=== PATIENT | female | born 1975 | race Caucasian/White ===

== ENCOUNTER 2018-08-21 16:38 | Emergency (ER) | payer SELFPAY ==
--- NOTE | 2018-08-21 17:52 | ED Physician Documentation ---
General Adult - HISTORIAN Historian: patient - HPI Stated Complaint: generalized body aches Chief Complaint: General Adult Additional Information: pt here from [place] while house renovated on meds for conditions below-needs refill meds Onset: other (chronic conditions) Timing: still present, pain lasting, persistent since Severity: moderate - ROS CONST: no problems (except as usual) EYES/ENT: none CVS/RESP: denies: chest pain, shortness of breath, cough GI/: denies: abdominal pain, problems urinating, vomiting, nausea MS/SKIN/LYMPH: back pain NEURO/PSYCH: numbness, anxiety, depression - PAST HX Past History: other (fibromyalgia IBS neuropathy gerd - upper body stiffness udo chronic pain pt -unable take lyrica- on cymbalta valium trazadone) Surgeries/Procedures: hysterectomy, other (carotidd for subclavian stealsyndrome) Allergies/Adverse Reactions: Allergies Allergy/AdvReac Type Severity Reaction Status Date / Time morphine Allergy Hives Verified 08/21/18 17:25 Sulfa (Sulfonamide Allergy Hives Verified 08/21/18 17:25 Antibiotics) Home Medications: Ambulatory Orders Medication Instructions Recorded Diazepam [Valium] 10 mg PO BID 08/21/18 Duloxetine HCl [Cymbalta] 120 mg PO BID 08/21/18 - SOCIAL HX Smoking History: non-smoker Alcohol Use: none Drug Use: none - FAMILY HX Family History: No - VITAL SIGNS Vital Signs: Vital Signs Temp Pulse Resp BP Pulse Ox 95 H 16 139/88 97 08/21/18 16:43 08/21/18 16:43 08/21/18 16:43 08/21/18 16:43 - REVIEWED ASSESSMENTS Nursing Assessment Reviewed: Yes Vitals Reviewed: Yes General Adult Physical Exam - PHYSICAL EXAM GENERAL APPEARANCE: mild distress EENT: eye inspection normal NECK: normal inspection, supple. No: thyromegaly RESPIRATORY: no resp distress, chest non-tender CVS: reg rate & rhythm, heart sounds normal ABDOMEN: soft, non-tender BACK: CVA tenderness (R), CVA tenderness (L) SKIN: warm/dry, normal color. No: cyanosis, diaphoresis, jaundice EXTREMITIES: non-tender, normal range of motion, no edema NEURO: oriented X3 Discharge Clincal Impression: chronic pain pt-fibromyalgia djd neuropa, cont-neuropathy IBS, ANXIETY GERD Referrals: Primary Doctor,No [Primary Care Provider] - 2 Days Comments: PT UNDERSTANDS DIFFICULT REPEAT CONTROLLED SUBSTANCE=-VALIUM- IN THE [facility] DEPT Condition: Fair Disposition: 01 HOME, SELF-CARE Decision to Admit: NO Decision Time: 18:08
[2018-08-21 18:21] VITALS: BP 138/4
== END 2018-08-21 18:13 | disposition home or self-care (01) ==
LOC: ED 16:38
DX: G89.29 Other chronic pain (principal); M79.7 Fibromyalgia; M19.90 Unspecified osteoarthritis, unspecified site; G62.9 Polyneuropathy, unspecified; K58.9 Irritable bowel syndrome, unspecified; F41.9 Anxiety disorder, unspecified; K21.9 Gastro-esophageal reflux disease without esophagitis
CPT/HCPCS: 99281